=== PATIENT | male | born 1945 | race Caucasian/White ===

== ENCOUNTER 2017-05-20 10:56 | Outpatient (CLI) | payer MEDICARE ==
[2017-05-20 12:13] LABS: Hemoglobin 16.3 g/dL (14.0-18.0); Mean Corpuscular HGB CONC 34.7 g/dL (32.0-36.0); Mean Corpuscular Hemoglobin 31.3 pg (27.0-31.0); Mean Corpuscular Volume 90.1 fl (80.0-94.0); Mean Platelet Volume 7.3 fL (7.4-10.4); Platelet Count 182 thou/uL (130-400); RBC Distribution Width 11.8 % (11.5-14.5)
[2017-05-20 12:26] LABS: INR-International Normal Ratio 1.1
[2017-05-20 12:37] LABS: ALT (SGPT) 17 U/L (8-55); AST (SGOT) 19 U/L (5-34); Albumin 4.1 g/dL (3.4-4.8); Alkaline Phosphatase 115 U/L (40-150); Anion Gap 6 mmol/L (10-20); BUN (Urea Nitrogen) 16 mg/dL (8.4-25.7); Bilirubin, Total 1.2 mg/dL (0.2-1.2); Calc. Creatinine Clearance 0 mL/min (70-130); Calcium 9.4 mg/dL (7.8-10.44); Carbon Dioxide 32 mmol/L (23-31); Chloride 103 mmol/L (98-107); Estimated GFR-MDRD Greater than 90; Globulin 3.3 g/dL (2.4-3.5); Glucose 81 mg/dL (80-115); Potassium 4.2 mmol/L (3.5-5.1); Protein, Total 7.4 g/dL (5.8-8.1); Sodium 137 mmol/L (136-145)
--- NOTE | 2017-05-20 20:26 | EKG ---
Test Reason : Blood Pressure : / mmHG Vent. Rate : 044 BPM Atrial Rate : 044 BPM P-R Int : 168 ms QRS Dur : 088 ms QT Int : 470 ms P-R-T Axes : 053 057 015 degrees QTc Int : 401 ms Marked sinus bradycardia Abnormal ECG When compared with ECG of 11-FEB-2012 11:38, No significant change was found Confirmed by SAW CHAVEZ, DR. Harrison ([id number]) on 05/20/2017 8:26:34 PM Referred By: JOHN Confirmed By:DR. Hunter SPRING MD
== END 2017-05-20 10:57 | disposition home or self-care (01) ==
LOC: LABBT 10:56
PROVIDERS: ATTEND Internal Medicine Cardiovascular Disease
DX: Z01.818 Encounter for other preprocedural examination (principal); R94.39 Abnormal result of other cardiovascular function study
CPT/HCPCS: 80053; 85027; 85610; 85730; 93005; 93010

== ENCOUNTER → 2017-05-21 | Day surgery (SDC) | payer MEDICARE ==
[2017-05-20 11:07] VITALS: BMI 26.4
[~2017-05-21] MED LIST: Diazepam 5 MG TAB ONE; Fentanyl 250 MCG/5 ML VIAL ONE; Iopamidol 370 76% 100 ML VIAL ONE; Lidocaine 1% (PF) 30 ML VIAL ONE; Midazolam HCl 2 mg/2 ml Vial ONE
[2017-05-21 07:57] LABS: Cardiac Risk 4.3 (Less than 4.5)
== END ==
LOC: CCL 05:55
PROVIDERS: ATTEND Internal Medicine Cardiovascular Disease
PROC: B2111ZZ Fluoroscopy of Multiple Coronary Arteries using Low Osmolar Contrast (ICD-10-PCS; principal; 2017-05-21)
DX: R07.9 Chest pain, unspecified (principal); I50.9 Heart failure, unspecified; I48.92 Unspecified atrial flutter; I42.8 Other cardiomyopathies; Z79.899 Other long term (current) drug therapy; Z98.890 Other specified postprocedural states
CPT/HCPCS: 76942; 80061; 93454; C1760; C1769; 99152; J1644; J2001; J2250; J3010

== ENCOUNTER 2021-02-25 10:06 | Outpatient (CLI) | payer MEDICARE ==
[2021-02-25 11:24] LABS: Estimated GFR-MDRD - POC Greater than 90
== END 2021-02-25 10:07 | disposition home or self-care (01) ==
LOC: CT 10:06
PROVIDERS: ATTEND Physician Assistant
DX: H53.9 Unspecified visual disturbance (principal); M89.9 Disorder of bone, unspecified
CPT/HCPCS: 70496; 70498; 82565

== ENCOUNTER 2022-06-19 11:17 | Outpatient (CLI) | payer MEDICARE ==
[2022-06-19 13:04] LABS: #Eosinphils 0.1 10x3/uL (0.0-0.5); #Monocytes 0.4 10x3/uL (0.0-1.1); #Neutrophils 4.8 10x3/uL (1.5-8.4); %Basophils 0.3 % (0.0-2.0); %Eosinophils 1.8 % (0.0-6.0); %Lymphocytes 28.8 % (18.0-47.0); %Monocytes 5.8 % (0.0-10.0); Hemoglobin 15.7 g/dL (13.5-17.5); Mean Corpuscular HGB CONC 34.8 g/dL (32.0-36.0); Mean Corpuscular Hemoglobin 30.8 pg (27.0-33.0); Mean Corpuscular Volume 88.6 fl (81.2-95.1); Mean Platelet Volume 10.4 fl (7.4-10.4); Platelet Count 212 10x3/uL (150-450); RBC Distribution Width 12.6 % (11.5-14.5); Red Blood Cell (RBC) Count 5.09 10x6/uL (4.32-5.72); White Blood Cell (WBC) Count 7.6 10x3/uL (3.5-10.5)
[2022-06-19 13:31] LABS: Anion Gap 16 mmol/L (10-20); BUN (Urea Nitrogen) 16 mg/dL (8.4-25.7); Calc. Creatinine Clearance 0 mL/min (70-130); Calcium 9.2 mg/dL (7.8-10.44); Carbon Dioxide 25 mmol/L (23-31); Chloride 104 mmol/L (98-107); Estimated GFR 92; Glucose 89 mg/dL (83-110); Potassium 4.3 mmol/L (3.5-5.1); Sodium 141 mmol/L (136-145)
[2022-06-19 13:36] LABS: Prothrombin Time 10.5 sec (9.5-12.1)
== END 2022-06-19 11:18 | disposition home or self-care (01) ==
LOC: LABBT 11:17
PROVIDERS: ATTEND Orthopaedic Surgery
DX: Z01.812 Encounter for preprocedural laboratory examination (principal); M17.12 Unilateral primary osteoarthritis, left knee
CPT/HCPCS: 80048; 85025; 85610; 87081; 93005; 93010

== ENCOUNTER 2022-06-23 06:19 | Observation (INO) | payer MEDICARE ==
[2022-06-23] MEDS ORDERED: Sodium Chloride 0.9% 100 ML ONE ×2 (07:03→08:43)
[2022-06-23] MEDS ORDERED: Tranexamic Acid 1,000 MG/10 ML VIAL ONE (07:03)
[2022-06-23] MEDS ORDERED: Vancomycin (BATCH) 1.5 GRAM/300 ML BAG ONE (07:03)
[2022-06-23] MEDS ORDERED: Bupivacaine PF 0.5% 30 ML VIAL ONE ×2 (07:52→08:54)
[2022-06-23] MEDS ORDERED: fentaNYL 50 mcg/mL 1 mL Vial ONE (07:52)
[2022-06-23] MEDS ORDERED: Midazolam HCl 2 mg/2 ml Vial ONE (07:52)
[2022-06-23] MEDS ORDERED: Bupivacaine HCl 0.5%/Epinephrine 1:200,000/PF 30 ml Vial ONE (08:15)
[2022-06-23] MEDS ORDERED: fentaNYL 50 mcg/mL 1 mL Vial SLOW IVP PRN (08:38)
[2022-06-23] MEDS ORDERED: CEFAZOLIN 2 GM VIAL ONE (08:43)
[2022-06-23] MEDS ORDERED: Zolpidem Tartrate 5 MG TAB PO PRN ×2 (08:45→08:47)
[2022-06-23] MEDS ORDERED: Promethazine HCl 25 MG/ML VIAL IM PRN ×2 (08:45→08:47)
[2022-06-23] MEDS ORDERED: traMADol HCl 50 MG TAB PO PRN ×2 (08:45)
[2022-06-23] MEDS ORDERED: HYDROcodone/Acetaminophen 10/325 mg Tablet PO PRN (08:45)
[2022-06-23] MEDS ORDERED: Ondansetron PF 4 MG/2 ML Vial IVP PRN ×2 (08:45→08:47)
[2022-06-23] MEDS ORDERED: Ropivacaine 0.2% 550 ML 550 ML NERVE BLCK SCH (08:45)
[2022-06-23] MEDS ORDERED: diphenhydrAMINE 25 MG CAP PO PRN (08:47)
[2022-06-23] MEDS ORDERED: Acetaminophen 325 MG TAB PO PRN (08:47)
[2022-06-23] MEDS ORDERED: Fentanyl 100 MCG/2 ML VIAL SLOW IVP PRN (08:47)
[2022-06-23] MEDS ORDERED: PROPOFOL 200 MG/20 ML VIAL ONE (09:20)
[2022-06-23] MEDS ORDERED: Ketorolac Tromethamine 30 MG/ML VIAL ONE (09:20)
[2022-06-23] MEDS ORDERED: ePHEDrine Sulfate 50 MG/10 ML VIAL ONE ×2 (09:20→09:41)
[2022-06-23 15:59] VITALS: BMI 26.0
[2022-06-23] MEDS: Finasteride 5 MG TAB PO SCH (16:43)
[2022-06-23] MEDS: Aspirin 81 mg Enteric Coated Tablet PO SCH ×2 (16:43→20:34)
[2022-06-23] MEDS: Sodium Chloride 0.9% 1,000 ML IV SCH ×2 (16:43→20:35)
[2022-06-23] MEDS: Ketorolac Tromethamine 30 MG/ML VIAL IVP SCH ×2 (16:44→16:48)
[2022-06-23] MEDS: CEFAZOLIN 2 GM in Sodium Chloride 0.9% 100 ML IVPB SCH (16:49)
[2022-06-23] MEDS: HYDROcodone/Acetaminophen 10/325 mg Tablet PO PRN (20:34)
[2022-06-24] MEDS: Ketorolac Tromethamine 30 MG/ML VIAL IVP SCH ×2 (00:41→05:09)
[2022-06-24] MEDS: CEFAZOLIN 2 GM in Sodium Chloride 0.9% 100 ML IVPB SCH (00:41)
[2022-06-24] MEDS: HYDROcodone/Acetaminophen 10/325 mg Tablet PO PRN (00:44)
[2022-06-24] MEDS: Sodium Chloride 0.9% 1,000 ML IV SCH (05:12)
[2022-06-24 07:00] LABS: Hemoglobin 12.9 g/dL (14.0-18.0); Mean Corpuscular HGB CONC 35.9 g/dL (32.0-36.0); Mean Corpuscular Hemoglobin 32.7 pg (27.0-31.0); Mean Corpuscular Volume 91.1 fl (78.0-98.0); Mean Platelet Volume 7.7 fL (7.4-10.4); Platelet Count 149 10x3/uL (130-400); RBC Distribution Width 11.7 % (11.5-14.5); Red Blood Cell (RBC) Count 3.93 mill/uL (4.70-6.10); White Blood Cell (WBC) Count 7.7 10x3/uL (4.8-10.8)
[2022-06-24] MEDS ORDERED: Ferrous Gluconate 324 MG TAB PO SCH (08:00)
[2022-06-24 08:22] VITALS: BP 121/76; TEMP 98.5
[2022-06-24] MEDS ORDERED: Multivitamin W/ Minerals 1 TAB PO SCH (09:00)
[2022-06-24] MEDS ORDERED: Senokot S 8.6-50 MG TAB PO SCH (09:00)
[2022-06-24] MEDS: Finasteride 5 MG TAB PO SCH (09:27)
[2022-06-24] MEDS: Aspirin 81 mg Enteric Coated Tablet PO SCH (09:27)
== END 2022-06-24 11:02 | disposition home or self-care (01) ==
LOC: SDC 06:19 → SJJU 12:25
PROVIDERS: ADMIT Orthopaedic Surgery; ATTEND Orthopaedic Surgery
PROC: 0SRD0J9 Replacement of Left Knee Joint with Synthetic Substitute, Cemented, Open Approach (ICD-10-PCS; principal; 2022-06-23)
DX: M17.12 Unilateral primary osteoarthritis, left knee (principal); I42.8 Other cardiomyopathies; E78.5 Hyperlipidemia, unspecified; G89.29 Other chronic pain; M54.9 Dorsalgia, unspecified; Z79.899 Other long term (current) drug therapy
CPT/HCPCS: 20985; 27447; 73560; 85027; 97110; 97116 ×2; 97530; A4306; C1713; C1776; J3010; J3370; 36415; J1885; J2250; J2704; J2795; J3490; S0020

== ENCOUNTER 2023-01-08 13:37 | Outpatient (CLI) | payer MEDICARE ==
[2023-01-08 15:01] LABS: #Eosinphils 0.2 10x3/uL (0.0-0.5); #Monocytes 0.5 10x3/uL (0.0-1.1); #Neutrophils 3.7 10x3/uL (1.5-8.4); %Basophils 0.3 % (0.0-2.0); %Eosinophils 2.4 % (0.0-6.0); %Lymphocytes 33.2 % (18.0-47.0); %Monocytes 7.7 % (0.0-10.0); %Neutrophils 56.2 % (40.0-75.0); Hematocrit 40.2 % (38.8-50.0); Hemoglobin 14.1 g/dL (13.5-17.5); Mean Corpuscular HGB CONC 35.1 g/dL (32.0-36.0); Mean Corpuscular Volume 88.4 fl (81.2-95.1); Mean Platelet Volume 10.1 fl (7.4-10.4); Platelet Count 189 10x3/uL (150-450); RBC Distribution Width 12.9 % (11.5-14.5); Red Blood Cell (RBC) Count 4.55 10x6/uL (4.32-5.72); White Blood Cell (WBC) Count 6.6 10x3/uL (3.5-10.5)
[2023-01-08 15:17] LABS: Prothrombin Time 10.5 sec (9.5-12.1)
[2023-01-08 15:21] LABS: Anion Gap 13 mmol/L (10-20); BUN (Urea Nitrogen) 16 mg/dL (8.4-25.7); Calc. Creatinine Clearance 0 mL/min (70-130); Calcium 8.6 mg/dL (7.8-10.44); Carbon Dioxide 25 mmol/L (23-31); Chloride 107 mmol/L (98-107); Estimated GFR 95; Glucose 89 mg/dL (83-110); Potassium 3.9 mmol/L (3.5-5.1); Sodium 141 mmol/L (136-145)
== END 2023-01-08 13:38 | disposition home or self-care (01) ==
LOC: LABBT 13:37
PROVIDERS: ATTEND Orthopaedic Surgery
DX: Z01.818 Encounter for other preprocedural examination (principal); M17.11 Unilateral primary osteoarthritis, right knee
CPT/HCPCS: 80048; 85025; 85610; 87081; 93005; 93010

== ENCOUNTER 2023-01-12 05:50 | Observation (INO) | payer MEDICARE ==
[2023-01-08 14:40] VITALS: BMI 25.7
[2023-01-12] MEDS ORDERED: Midazolam HCl 2 mg/2 ml Vial ONE (08:02)
[2023-01-12] MEDS ORDERED: fentaNYL 50 mcg/mL 1 mL Vial ONE ×2 (08:03→09:55)
[2023-01-12] MEDS ORDERED: Bupivacaine PF 0.5% 30 ML VIAL ONE ×2 (08:03→09:08)
[2023-01-12] MEDS ORDERED: Tranexamic Acid 1,000 MG/10 ML VIAL ONE (08:46)
[2023-01-12] MEDS ORDERED: Sodium Chloride 0.9% 100 ML ONE ×2 (08:46→09:08)
[2023-01-12] MEDS ORDERED: Vancomycin (BATCH) 1.5 GM/300 ML BAG ONE (08:47)
[2023-01-12] MEDS ORDERED: Promethazine HCl 25 MG/ML VIAL IM PRN ×3 (08:54→10:41)
[2023-01-12] MEDS ORDERED: diphenhydrAMINE 25 MG CAP PO PRN (08:54)
[2023-01-12] MEDS ORDERED: Acetaminophen 325 MG TAB PO PRN (08:54)
[2023-01-12] MEDS ORDERED: Ondansetron PF 4 MG/2 ML Vial IVP PRN ×2 (08:54→09:45)
[2023-01-12] MEDS ORDERED: HYDROcodone/Acetaminophen 10/325 mg Tablet PO PRN ×3 (08:54→09:45)
[2023-01-12] MEDS ORDERED: fentaNYL 50 mcg/mL 1 mL Vial SLOW IVP PRN ×2 (08:54→09:45)
[2023-01-12] MEDS ORDERED: Zolpidem Tartrate 5 MG TAB PO PRN ×2 (08:54→09:45)
[2023-01-12] MEDS ORDERED: CEFAZOLIN 2 GM VIAL ONE (09:08)
[2023-01-12] MEDS ORDERED: Bupivacaine 0.75% W/DEXTROSE 8.25% 2 ML AMP ONE (09:18)
[2023-01-12] MEDS ORDERED: Phenylephrine 40 MG/NS 250 ML 0 ML ONE (09:19)
[2023-01-12] MEDS ORDERED: Propofol 1,000 MG/100 ML VIAL IV ONE (09:19)
[2023-01-12] MEDS ORDERED: Dexamethasone 20 MG/5 ML VIAL ONE (09:21)
[2023-01-12] MEDS ORDERED: PROPOFOL 200 MG/20 ML VIAL ONE (09:21)
[2023-01-12] MEDS ORDERED: Lidocaine 1% PF 5 ML VIAL ONE (09:21)
[2023-01-12] MEDS ORDERED: Ketorolac Tromethamine 30 MG/ML VIAL ONE (09:21)
[2023-01-12] MEDS ORDERED: ePHEDrine Sulfate 50 MG/10 ML VIAL ONE (09:21)
[2023-01-12] MEDS ORDERED: Ondansetron PF 4 MG/2 ML Vial ONE (09:21)
[2023-01-12] MEDS ORDERED: Bupivacaine HCl 0.5%/Epinephrine 1:200,000/PF 30 ml Vial ONE (09:21)
[2023-01-12] MEDS ORDERED: Ropivacaine 0.2% 550 ML 550 ML NERVE BLCK SCH (09:45)
[2023-01-12] MEDS ORDERED: traMADol HCl 50 MG TAB PO PRN ×2 (09:45)
[2023-01-12] MEDS ORDERED: PACU-Morphine 4MG/ML VIAL SLOW IVP PRN (10:41)
[2023-01-12] MEDS ORDERED: HYDROmorphone 2 MG/ML VIAL SLOW IVP PRN (10:41)
[2023-01-12] MEDS ORDERED: Ondansetron HCl/PF 4 MG/2 ML Vial IVP PRN (10:41)
[2023-01-12] MEDS ORDERED: fentaNYL PF 100 MCG/2 ML SYRINGE ONE (11:06)
[2023-01-12] MEDS ORDERED: Ketorolac Tromethamine 30 MG/ML VIAL IVP SCH (14:00)
[2023-01-12] MEDS: Ferrous Gluconate 324 MG TAB PO SCH ×2 (14:31→21:37)
[2023-01-12] MEDS: Multivitamin W/ Minerals 1 TAB PO SCH (14:31)
[2023-01-12] MEDS: Aspirin 81 mg Enteric Coated Tablet PO SCH ×2 (14:31→21:37)
[2023-01-12] MEDS: Ketorolac Tromethamine 30 MG/ML VIAL IVP SCH ×3 (14:31→22:56)
[2023-01-12] MEDS: Senokot S 8.6-50 MG TAB PO SCH ×2 (14:31→21:37)
[2023-01-12] MEDS: Finasteride 5 MG TAB PO SCH (14:31)
[2023-01-12] MEDS: CEFAZOLIN 2 GM in Sodium Chloride 0.9% 100 ML IVPB SCH ×2 (14:44→21:37)
[2023-01-12] MEDS: HYDROcodone/Acetaminophen 10/325 mg Tablet PO PRN ×2 (14:45→18:41)
[2023-01-12] MEDS: Sodium Chloride 0.9% 1,000 ML IV SCH ×2 (18:45→21:46)
[2023-01-13] MEDS: Sodium Chloride 0.9% 1,000 ML IV SCH (02:22)
[2023-01-13 04:59] LABS: Mean Corpuscular HGB CONC 34.3 g/dL (32.0-36.0); Mean Corpuscular Volume 90.4 fl (78.0-98.0); Mean Platelet Volume 10.9 fL (7.4-10.4); Platelet Count 168 10x3/uL (130-400); Red Blood Cell (RBC) Count 3.87 mill/uL (4.70-6.10); White Blood Cell (WBC) Count 15.5 10x3/uL (4.8-10.8)
[2023-01-13] MEDS: Ketorolac Tromethamine 30 MG/ML VIAL IVP SCH (05:40)
[2023-01-13 07:58] VITALS: BP 117/68; TEMP 98.1
[2023-01-13] MEDS: Senokot S 8.6-50 MG TAB PO SCH (09:30)
[2023-01-13] MEDS: Multivitamin W/ Minerals 1 TAB PO SCH (09:30)
[2023-01-13] MEDS: Ferrous Gluconate 324 MG TAB PO SCH ×2 (09:30→09:32)
[2023-01-13] MEDS: Finasteride 5 MG TAB PO SCH (09:31)
[2023-01-13] MEDS: Aspirin 81 mg Enteric Coated Tablet PO SCH (09:31)
== END 2023-01-13 09:50 | disposition home or self-care (01) ==
LOC: SDC 05:50 → SURG A 08:54
PROVIDERS: ADMIT Orthopaedic Surgery; ATTEND Orthopaedic Surgery
PROC: 0SRC0JZ Replacement of Right Knee Joint with Synthetic Substitute, Open Approach (ICD-10-PCS; principal; 2023-01-12)
DX: M17.11 Unilateral primary osteoarthritis, right knee (principal); Z90.49 Acquired absence of other specified parts of digestive tract; Z96.652 Presence of left artificial knee joint
CPT/HCPCS: 27447; 73560; 85027; 97110; 97116 ×2; 97530; A4306; C1776; J3010; J3370; 36415; J1100; J1885; J2250; J2405; J2704; J2795; J3490; S0020